=== PATIENT | male | born 2000 | race Caucasian/White ===

== ENCOUNTER 2024-10-07 09:53 | Outpatient (AMB) | payer BC, SELFPAY ==
--- NOTE | 2024-10-07 10:06 | MHC.PC.OV ---
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 //Requesting PE Intake Note: New patient to establish care Client Support Associate Required: No Allergies Penicillins Allergy (Severe, Verified 10/07/24 10:37) Unknown Medication List - Last Reconciled 10/07/24 by Marlene Pimentel, BRAZING MACHINE OPERATOR HELPER- trazodone 50 mg PO BEDTIME PRN Tobacco use date assessed: 10/07/24 Dental Screening Dental Screen Date: 10/07/24 Did you have a dental visit in the last 12 months?: Yes Did you have a dental problem in the last 6 months where you did not have access to dental care?: No Was dental information given to patient?: Patient has dentist HPI HPI Comments History of Present Illness Details 24 y/o M with ZULLY, IBS, GERD Surgery: None Fhx: MGF prostate Ca, PGF Lung Ca MGM Lung Ca 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 Hobbies - exercise Vapes nicotine some times ; uses nicotine lozenges Health Maintenance: Tdap admin today [facility] wears glasses, last eye exam 2024 Previous PCP: Samantha, records reviewed. Here as a new patient. to est care and for CPE GI sx - chronic for years. FFd by GI in the past. Has known dietary triggers. Denies blood in stools. Reports unexpected wt changes, states was 190lbs now 160's. 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 Feels GI sx started 2 years before starting Trazadone; no worsening of sx after starting. Traz works good for anxiety. Not in counseling; did was younger. Managing. Yaniv si/hi. 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 - Engages in exercise and snacks as possible due to work schedule. - Lives in a safe environment; no concerns reported. - Reports occasional smoking and vaping, transitioning to nicotine lozenges. Health Maintenance - Family history of cancer discussed. - Tetanus vaccination administered. - Screening labs for cholesterol and diabetes discussed. - Encouraged to use sunscreen and bug spray outdoors. - Follow-up with [facility] GI group for a second opinion. - Encouraged to maintain nutrition and observe food triggers for IBS management. Review of Systems - Gastrointestinal: Reports abdominal pain, diarrhea; denies blood in stools - Weight: Denies intentional weight loss - Neurological: Denies coordination or balance issues - Psychological: Reports anxiety - Respiratory: Denies any breathing difficulties Physical Exam General: Well developed, well nourished, in no acute distress. Appears stated age. Head: Normocephalic, atraumatic. Eyes: Pupils are equal, round and reactive to light and accommodation. Conjunctivae are clear. Vision grossly normal. Wears glasses, last eye exam within the past few months. Ears: TMs clear AU, EACS WNL. Tiny bit of wax noted, no blockage. Offered and declined lavage today. Nose: Patent, without discharge. Neck: Supple, no adenopathy or thyromegaly. No pain or tenderness noted. Breast: Edu on SBE Lungs: Clear to auscultation bilaterally. No rales, rhonchi or wheeze noted. Good air flow in all magaña. Heart: Regular rate and rhythm. No murmurs, click, rubs or gallops are noted. Abdomen: Bowel sounds present in all quadrants. The abdomen is soft, nontender, with no masses or organomegaly noted. No hernias are noted. No pain or tenderness upon palpation. : Deferred. Reviewed FARIDEH & recommendations. Patient educated on testicular and penile exams. Pulses: Peripheral pulses are equal and palpable bilaterally. Extremities: No clubbing, cyanosis nor edema is noted. Foot fungus noted, advised on antifungal treatment. Neurologic: Gait and station normal. Cranial Nerves 2-12 intact. Motor strength grossly symmetrical and intact. No sensory loss. Balance normal. Skin: No rashes, ulcers, or lesions noted. Turgor is good. Skin color is good. Hair and nails are without abnormalities. Psych: Normal eye contact, affect and mood appropriate, and normal interactions. Patient is alert and appropriate to context. No current counseling, but trazodone is helping with anxiety and sleep. No thoughts of self-harm or harm to others. Results Pending Discussion Notes I discussed the patient's chronic gastrointestinal symptoms suggestive of IBS, emphasizing the potential benefit of a consult with [facility]'s GI group for a second opinion. I reassured that trazodone use does not correlate with worsening of symptoms based on the patient's observation. I explained the ongoing necessity for dietary management and offered strategies for nutritional intake amidst work challenges. We discussed the unexplained weight loss with observation for any further changes. I reviewed the use of the patient portal for easy access to care and communication. Lab tests for diabetes and cholesterol screening were proposed. Assessment and Plan 1. Irritable Bowel Syndrome (IBS) - GI referral for evaluation. - Continue dietary adjustment, monitor progress. 2. Gastroesophageal Reflux Disease (GERD) - Maintain dietary and lifestyle management. 3. Anxiety and Insomnia - Continue trazodone, assess response. 4. Weight Management - Encourage nutritional consistency. 5. Health Maintenance - Tetanus vaccination given. - Order labs for diabetes and cholesterol. Patient Instructions - Avoid foods that worsen your symptoms, like raw vegetables. - Monitor any changes in weight and eating habits. - Continue taking trazodone as prescribed to manage anxiety and sleep. - Expect a call from [facility] for a GI appointment. - Make sure to get screening labs done for cholesterol and diabetes. - Use the patient portal for quick access to test results and communication with me. - RTO 1 year CPE sooner PRN Consent Patient was informed and verbally consented to the use of an ambient scribe for clinic note documentation during this visit. An additional 15 minutes was spent addressing the problem(s) noted at todays visit. This includes time spent before the visit reviewing the chart, time spent during the visit, and time spent after the visit on documentation reviewing laboratory results, diagnostic imaging, medications, performing a medically necessary evaluation, counseling on diagnoses, care coordination, ordering appropriate tests, ordering appropriate medications, review of tests performed by other providers, reporting test results with the patient, communication with other healthcare providers. [facility] Medical History (Updated 10/07/24 @ 11:40 by Marlene Pimentel [facility]) Anxiety IBS (irritable bowel syndrome) Surgical History (Updated 10/07/24 @ 10:15 by Christiano Cross MA) [place] teeth removed Family History (Updated 10/07/24 @ 10:16 by Christiano Cross MA) Paternal Grandmother Lung cancer Maternal Grandfather Prostate cancer Paternal Grandfather Lung cancer Social History (Updated 10/07/24 @ 10:14 by Christiano Cross MA) Household Members: Family Housing: House Are you a primary career education teacher to a significant other at home: No Do you presently have visiting nurse or other home services: No Alcohol intake: current Alcohol intake frequency: a few times a month Patient Tobacco Use Status: Never used Tobacco e-Cigarette/Vaping Use: Never Used Second Hand Smoke Exposure: No Current occupational status: employed 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 1. Little interest or pleasure in doing things: not at all 2. Feeling down, depressed, or hopeless: not at all 3. Trouble falling or staying asleep, or sleeping too much: not at all 4. Feeling tired or having little energy: not at all 5. Poor appetite or overeating: several days 6. Feeling bad about yourself - or that you are a failure or have let yourself or your family down: not at all 7. Trouble concentrating on things, such as reading the newspaper or watching television: not at all 8. Moving or speaking so slowly that other people could have noticed. Or the opposite - being so fidgety or restless that you have been moving around a lot more than usual: not at all 9. Thoughts that you would be better off or of hurting yourself in some way: not at all Total score: 1 Depression Screening Interpretation: Negative Depression Screening Done: Yes 94734 - PHQ-9 Billing: Yes Source: Developed by Drs. Wilbert Vital, Carrol Johnson, Alvarez Irby and colleagues, with an educational artie from [employer]. Thrive Questionnaire Date Thrive assessed: 10/07/24 I am a: Patient What is your living situation today?: I have a steady place to live Within the past 12 months, did the food you bought not last and you didn't have the money to get more?: Never true Within the past 12 months, did you worry whether your food would run out before you got money to buy more?: Never true Do you have trouble paying for medicines?: No Do you have trouble getting transportation to medical appointments?: No Do you have trouble paying your heating and electricity bill?: No Do you have trouble taking care of your child, family member or friend?: No Do you have trouble with day-to-day activities such as bathing, preparing meals, shopping, managing finances, etc.?: No Are you currently unemployed and looking for a job?: No Are you interested in more education?: Yes Please select the resources that you would like help with: None Currently or been in a relationship where the following occur: No concerns reported THRIVE Score: 0 AUDIT C Alcohol Use Questionnaire (AUDIT-C) 1. How often do you have a drink containing alcohol?: 4 or more times a week 2. How many drinks containing alcohol do you have on a typical day when you are drinking?: 1 or 2 3. How often do you have six or more drinks on one occasion?: Monthly Total Score: 6 Score Reviewed/Action Taken: Yes ZULLY-7 AMB Questionnaire ZULLY-7 Date ZULLY - 7 assessed: 10/07/24 Feeling nervous, anxious, or on edge: 1 = Several days Not being able to stop or control worryin = Not at all Worrying too much about different things: 1 = Several days Trouble relaxin = Not at all Being so restless that it is hard to sit still: 0 = Not at all Becoming easily annoyed or irritable: 0 = Not at all Feeling afraid as if something awful might happen: 0 = Not at all Total ZULLY-7 score (0-4 normal; 5-9 mild; 10-14 moderate; 15-21 severe): 2 Source: Developed by Drs. Wilbert Vital, Carrol Johnson, Alvarez Irby and colleagues, with an educational artie from [employer]. ZULLY-7 Assessment Billing ZULLY-7 Assessment Tool: ZULLY-7 Assessment 34475 Physical exam (Primary Care) Vital Signs: Last Vital Signs Temp 97.3 F 10/07/24 10:12 Pulse 72 10/07/24 10:12 Resp 12 10/07/24 10:12 BP 98/67 10/07/24 10:12 Pulse Ox 98 10/07/24 10:12 Oxygen Delivery Method Room Air 10/07/24 10:12 BMI result Body Mass Index 21.7 Tobacco/Smoking Status: Tobacco use Status Tobacco use date assessed 10/07/24 10/07/24 10:09 Patient Tobacco Use Status Never used Tobacco 10/07/24 10:14 e-Cigarette/Vaping Use Never Used 10/07/24 10:14 PHQ-9: PHQ-9 Score PHQ-9: Total score 1 10/07/24 10:37 Depression Screening Interpretation: Negative Thrive Assessment: Date of Thrive Assessment Date Thrive assessed 10/07/24 10/07/24 10:09 Currently or been in a relationship where the following occur: No concerns reported Immunizations Boostrix Tdap 2.5 Lf unit-8 mcg-5 Lf/0.5 mL intramuscular syringe Performing Provider: FUNMILAYO Mazariegos Performing Location: [facility] Administered by: Julieta Philippe RN on 10/07/24 11:09 Dose Route Admin Location Dispensed Lot Number Expiration Date [facility] Dye Stand Loader 0.5 mL IM Right Deltoid 0.5 mL [id number] 01/12/27 06350-883-80 Orbiter VIS Given Date VIS Provided VIS Publication Date 10/07/24 Single Vaccine 20 Eligibility Eligibility Date Funding Source Not [facility] Eligible 10/07/24 Private Coding Level of Care Code New Pt Level 2 (22132) New Pt Prev Care 18-39yr(08946 Diagnoses Encounter to establish care Z76.89 Irritable bowel syndrome with diarrhea K58.0 Irritable bowel syndrome type: with diarrhea Chronic diarrhea K52.9 Laboratory exam ordered as part of routine general medical examination Z00.00 Need for Tdap vaccination Z23 Encounter for general adult medical examination with abnormal findings Z00.01 Impacted cerumen of both ears H61.23 Additional Codes ZULLY-7 Assessment Billing - ZULLY-7 Assessment Tool: ZULLY-7 Assessment 25046 ([id number]) PHQ-9 - 19969 - PHQ-9 Billing: Yes ([id number]) Assessment & Plan Assessment & Plan (1) Encounter to establish care: Code(s): Z76.89 - Persons encountering health services in other specified circumstances (2) IBS (irritable bowel syndrome): Code(s): K58.9 - Irritable bowel syndrome, unspecified Category: Medical Qualifiers: Irritable bowel syndrome type: with diarrhea Qualified Code(s): K58.0 - Irritable bowel syndrome with diarrhea (3) Chronic diarrhea: Code(s): K52.9 - Noninfective gastroenteritis and colitis, unspecified Category: Medical (4) Laboratory exam ordered as part of routine general medical examination: Code(s): Z00.00 - Encounter for general adult medical examination without abnormal findings Category: Medical (5) Need for Tdap vaccination: Code(s): Z23 - Encounter for immunization Category: Medical (6) Encounter for general adult medical examination with abnormal findings: Onset Date: ~09/2024 Code(s): Z00.01 - Encounter for general adult medical examination with abnormal findings Category: Medical (7) Impacted cerumen of both ears: Code(s): H61.23 - Impacted cerumen, bilateral Plan: Earwax (Cerumen Impaction) Created in Ears Earwax, called cerumen, is produced by special wax-forming glands located in the skin of the outer one-third of the ear canal. It is normal to have cerumen in ear canal as this waxy substance serves as a self-cleaning agent with protective, lubricating, and antibacterial properties. The absence of earwax may result in dry, itchy ears. Self-cleaning means there is a slow and service center representative movement of earwax and skin cells from the eardrum to the ear opening. Old earwax is constantly being transported, assisted by chewing and jaw motion, from the ear canal to the ear opening where, most of the time, it dries, flakes, and falls out. What Are the Symptoms of an Earwax Blockage? Symptoms of an earwax problem may include: Earache Feeling of plugged hearing or fullness in the ear Partial hearing loss that gets worse Tinnitus, ringing, or noises in the ear Itching, odor, or discharge Coughing Pain Infection What Causes Earwax Blockage? When a patient has wax blockage against the eardrum, it is often because they have been probing the ear with such things as cotton-tipped swabs, marla pins, or twisted napkin corners. These objects only push the wax in deeper in the ear canal. Why Is It Dangerous to Use Swabs to Remove Earwax? Wax blockage is one of the most common causes of hearing loss. This is often caused by attempts to clean the ear with cotton swabs. Most cleaning attempts merely push the wax deeper into the ear canal which is shaped like an hourglass, causing a blockage at the narrowing part of the ear canal. In addition, accidental trauma to the ear drum or ear bones can occur if the swab is pushed too deep. Good intentions to keep ears clean may lessen the ability to hear. The ear is a delicate and complicated body part, including the skin of the ear canal and the eardrum. Therefore, special care should be given to this part of the body. Discontinue the habit of inserting cotton-tipped swabs or other objects into the ear canals. What Are the Treatment Options? Cleaning a working ear can be done by washing it with a soft cloth, but do not insert anything into the ear. Ideally, the ear canals should never have to be cleaned. However, that isn?t always the case. The ears should be cleaned when enough earwax gathers to cause symptoms or to prevent a needed assessment of the ear by your doctor. This condition is call cerumen impaction. Most cases of ear wax blockage respond to home treatments used to soften wax. Patients can try placing a few drops of mineral oil, baby oil, glycerin, or commercial drops in the ear. Detergent drops such as hydrogen peroxide or carbamide peroxide (available in most pharmacies) may also aid in the removal of wax. Irrigation or ear syringing is commonly used for cleaning and can be performed by a physician or at home using a commercially available irrigation kit. Common solutions used for syringing include water and saline, which should be warmed to body temperature to prevent dizziness. Ear syringing is most effective when water, saline, or wax dissolving drops are put in the ear canal 15 to 30 minutes before treatment. Caution is advised to avoid having your ears irrigated if you have diabetes, a hole in the eardrum (perforation), tube in the eardrum, skin problems such as eczema in the ear canal or a weakened immune system. >> If you have been prescribed Debrox, use as directed for 5 nights and return to the office on Day 6 for an ear lavage to remove the wax<< Manual removal of earwax is also effective. This is most often performed by an ENT (ear, nose, and throat) specialist, or real estate loan processor, using suction or special miniature instruments, and a microscope to magnify the ear canal. Manual removal is preferred if your ear canal is narrow, the eardrum has a perforation or tube, other methods have failed, or if you have skin problems affecting the ear canal, diabetes or a weakened immune system. When Should I Talk to a Doctor? If home treatments do not help, or if wax has accumulated so much that it blocks your ear canal and your ability to hear, an ENT specialist may prescribe eardrops designed to soften wax, or they may wash or vacuum it out. Your ENT specialist may also need to remove the wax under microscopic visualization. If there is a possibility of a perforation in the eardrum, consult a physician prior to trying any [id number] remedies. Putting eardrops or other products in the ear with the presence of an eardrum perforation may cause pain or an infection. Washing water through such a hole could start an infection. If you are prone to repeated wax impaction or use hearing aids, consider seeing your doctor every six to 12 months for a checkup and routine preventive cleaning. What Questions Should I Ask My Doctor? What are the benefits and risks/side effects of different cerumen removal management options: earwax softening products, water irrigation vs. physical removal? Does cerumen accumulation vary with age, gender, familial or dietary intake? How do I manage swimming underwater with cerumen impaction? Should anything be done to the ears to prevent a buildup of earwax? How often should cerumen be removed from the ears? Are ear candles a safe option for removing earwax? Plan . Orders: Orders TSH reflex Free T4 Today Z00.00 - Encounter for general adult medical examination without abnormal findings Comprehensive Met. Panel Today Z00.00 - Encounter for general adult medical examination without abnormal findings Complete Blood Count no Diff Today Z00.00 - Encounter for general adult medical examination without abnormal findings Hemoglobin A1c Today Z00.00 - Encounter for general adult medical examination without abnormal findings Lipid Panel Today Z00.00 - Encounter for general adult medical examination without abnormal findings Vitamin B12 and Folate Today Z00.00 - Encounter for general adult medical examination without abnormal findings Vitamin D 25-OH Total Today Z00.00 - Encounter for general adult medical examination without abnormal findings Referrals Gastroenterology Referral K52.9 - Noninfective gastroenteritis and colitis, unspecified, K58.9 - Irritable bowel syndrome, unspecified Medications: New trazodone 50 mg PO BEDTIME 90 tabs 2RF Patient Instructions: Walk-In Care (Urgent Care): We Make it Easy Walk-in for urgent medical issues such as: ? Seasonal Allergies ? Insect Bites ? Cough ? Diarrhea ? Acute Asthma Attacks ? Back, Knee or Joint Pain ? Ear Infection ? Fever without a Rash ? Headaches ? Nausea ? [place] Eye, Rash or Skin Irritation ? Sore Throat ? Sports Physicals ? Vomiting Most insurances are accepted. Patients do not need to be part of the [facility] to seek care at the walk-in clinic. Locations [facility] [place] [address] ? [phone] [facility] [place] provides services to ages 18 and over. Open Saturday-Saturday: 8 a.m. to 5 p.m. and Saturday: 9 a.m. to 3 p.m.* *Hours may vary due to staffing availability. To confirm Walk-In Care hours in [place], please call [phone]. [address] [place] [address] ? [phone] [facility] [place] provides services to ages 12 and over. Open Saturday-Saturday: 8 a.m. to 5 p.m. Hours may vary due to staffing availability. To confirm Walk-In Care hours in [place], please call [phone]. LABORATORY SERVICES: [facility] ? Primary Location [address] [place] [address] Saturday through Saturday 6:00 AM ? 5:00 PM Saturday 7:00 AM ? 11:00 AM* [phone] The [facility] is centrally located near the front entrance of the [facility] for easy outpatient access. Convenient parking is provided for outpatients. *Hours may vary due to staffing availability. To confirm Laboratory hours for any location, please call [phone]. Offsite Location For your convenience, we offer offsite laboratory draw stations at the following locations: [address] [place] [address] ? [facility] [address], [address] Saturday through Saturday 7:30 AM ? 1:00 PM* [phone] *Hours may vary due to staffing availability. To confirm Laboratory hours for any location, please call [phone]. [place] ? [address] Saturday through Saturday 6:00 AM ? 3:30 PM* Saturday 6:30 AM ? 3 PM* [phone] *Hours may vary due to staffing availability. To confirm Laboratory hours for any location, please call [phone]. [address] [facility] Saturday through Saturday 7:30 AM ? 4:00 PM* [phone] *Hours may vary due to staffing availability. To confirm Laboratory hours for any location, please call [phone]. [address] [facility] Saturday through 9:00 AM ? 4:00 PM* *Hours may vary due to staffing availability. To confirm Laboratory hours for any location, please call [phone]. Appointments are not necessary. Walk-ins are welcome. Like all the departments throughout the [facility], our Lab undergoes frequent reviews to ensure the quality and accuracy of test results, and our staff takes special pride in its status as a nationally accredited facility. Patient Portal: ONE PATIENT. ONE RECORD. BETTER CARE. [facility] has a fully integrated, cutting-edge mobile electronic health information system that has revolutionized the way we care for our patients and manage our organization. This system improves communication and coordination enabling us to provide safe, higher-quality care, and an overall positive experience for staff and patients. Our first priority, as always, is to deliver the highest quality care possible. The system is running in the background supporting that priority. This portal is for all [facility] and [facility] services and practices. If you are experiencing any technical difficulties with enrolling or logging into the Patient Portal please complete the [facility] Patient Portal Technical Support Form. [facility] now offers a new secure on-line interactive tool for patients to review their health information ? ?Patient Portal. This interactive web portal will enable patients and their families to take an active role in their care by providing easy, secure access to their health information via the internet. The Patient Portal provides patients with instant access to their health information, including laboratory results, medications, allergies, demographic information, visit history, and more. In addition to managing their own care, parents and health care proxies with authorized consent will appreciate the ability to access the records of those individuals for whom they provide care. Please note: if you wish to gain access (Proxy) to another patient?s portal, you will be required to come to the Medical Records Department in person at [facility]. Both the patient giving proxy access and the proxy will need to provide photo identification and complete the appropriate authorization. The Patient Portal also allows track their appointments online. The [facility] Patient Portal also saves patients time by allowing them to submit updates to their demographic and contact information prior to their visits. Portal email notifications will also alert patients to any new activity on their portal, such as test results and new appointments. In order to initially enroll in the [facility] Patient Portal, you will need to enter some required information including the following: your [facility] Medical Record number your personal home email address name date of Please note: In order to enroll in the [facility] Patient Portal, we need to have your email address on file in your electronic medical record. ?The email address needs to be specific for one person (yourself) in order for your Portal enrollment to be successful. ?You can update your email address in person with our Registration staff when you are registering for a hospital visit. ?Otherwise, you will need to come to the Health Information Management (Medical Records) Department at [facility]. ?We are open from Saturday ? Saturday from 7:30 a.m. ? 4:30 p.m. ?You will be required to present a photo id. Once you have successfully enrolled in the Patient Portal, you will receive a one-time user id and password for the Portal, sent to your email address. ?This will allow you to log into the Patient Portal within 99 hrs and reset your own logon id and password, and define personal security questions. ?Once your permanent login and password have been set, you can log into the [facility] Patient Portal at any time via the blue button above or from the Portal Logon button on any page of the [facility] website. [facility] and [facility] encourage all of our patients to enroll in Patient Portal as it presents a valuable opportunity for patients and their families to actively participate in their care and stay healthy Welcome to [facility]. ?We look forward to working with you. Health screenings for men You should visit your health care provider regularly, even if you feel healthy. The purpose of these visits is to: Screen for medical issues Assess your risk for future medical problems Encourage a healthy lifestyle Update vaccinations and other preventive care services Help you get to know your provider in case of an illness Information Even if you feel fine, you should still see your provider for regular checkups. These visits can help you avoid problems in the future. For example, the only way to find out if you have high blood pressure is to have it checked regularly. High blood sugar and high cholesterol level also may not have any symptoms in the early stages. Simple blood tests can check for these conditions. There are specific times when you should see your provider or receive specific health screenings. The [place] Preventive Services Task Force publishes a list of recommended screenings. Below are screening guidelines for men ages 40 to 64. BLOOD PRESSURE SCREENING Have your blood pressure checked at least once every year. Watch for blood pressure screenings in your area. Ask your provider if you can stop in to have your blood pressure checked. Ask your provider if you need your blood pressure checked more often if: You have diabetes, heart disease, kidney problems, or are overweight or have certain other health conditions You have a first-degree relative with high blood pressure You are Black Your blood pressure top number is from 120 to 129 mm Hg, or the bottom number is from 70 to 79 mm Hg If the top number is 130 mm Hg or greater or the bottom number is 80 mm Hg or greater, this is considered stage 1 hypertension. Schedule an appointment with your provider to learn how you can lower your blood pressure. Effects of age on blood pressure CHOLESTEROL SCREENING Cholesterol screening should begin at age 35 for men with no known risk factors for coronary heart disease. Repeat cholesterol screening should take place: Every 5 years for men with normal cholesterol levels More often if changes occur in lifestyle (including weight gain and diet) More often if you have diabetes, heart disease, kidney problems, or certain other conditions COLORECTAL CANCER SCREENING If you are under age 45, talk to your provider about getting screened. You may need to be screened if you have a strong family history of colon cancer or polyps. Screening may also be considered if you have risk factors such as a history of inflammatory bowel disease or polyps. If you are age 45 to 75, you should be screened for colorectal cancer. There are several screening tests available: A stool-based fecal occult blood (gFOBT) or fecal immunochemical test (FIT) every year A stool sDNA test every 1 to 3 years Flexible sigmoidoscopy every 5 years or every 10 years with stool testing FIT done every year CT colonography (virtual colonoscopy) every 5 years Colonoscopy every 10 years You may need a colonoscopy more often if you have risk factors for colorectal cancer, such as: Ulcerative colitis A personal or family history of colorectal cancer A history of growths in your colon called adenomatous polyps DENTAL EXAM Go to the dentist once or twice every year for an exam and cleaning. Your dentist will evaluate if you have a need for more frequent visits. DIABETES SCREENING All adults who do not have risk factors for diabetes should be screened starting at age 35 and repeated every 3 years. If you have other risk factors for diabetes, such as a first degree relative with diabetes, overweight or obesity, high blood pressure, prediabetes, or a history of heart disease, you may be tested more often. If you are overweight and have other risk factors, such as high blood pressure and are planning to become , screening is recommended. EYE EXAM Have an eye exam every 2 to 4 years ages 40 to 54 and every 1 to 3 years ages 55 to 64. Your provider may recommend more frequent eye exams if you have vision problems or glaucoma risk. Have an eye exam that includes an examination of your retina (back of your eye) at least every year if you have diabetes. IMMUNIZATIONS Commonly needed vaccines include: Flu shot: get one every year COVID-19 vaccine: ask your provider what is best for you Tetanus-diphtheria and acellular pertussis (Tdap) vaccine: have as one of your tetanus-diphtheria vaccines if you did not receive it as an adolescent Tetanus-diphtheria: have a booster (or Tdap) every 10 years Varicella vaccine: receive 2 doses if you never had chickenpox or the varicella vaccine and were born in 1979 or after Hepatitis B vaccine: receive 2, 3, or 4 doses, depending on your exact circumstances, if you did not receive these as a child or adolescent, until age 59 Shingles (herpes zoster) vaccine: at or after age 50 Ask your provider if you should receive other immunizations, especially if you have certain medical conditions, such as diabetes or are at increased risk for some diseases such as pneumonia. INFECTIOUS DISEASE SCREENING Screening for hepatitis C: all adults ages 18 to 79 should get a one-time test for hepatitis C. Screening for human immunodeficiency virus (HIV): all people ages 15 to 65 should get a one-time test for HIV. Depending on your lifestyle and medical history, you may need to be screened for infections such as syphilis, chlamydia, and other infections. LUNG CANCER SCREENING You should have an annual screening for lung cancer with low-dose computed tomography (LDCT) if: You are age 50 to 80 years AND You have a 20 pack-year smoking history AND You currently smoke or have quit within the past 15 years OSTEOPOROSIS SCREENING If you are age 50 to 64 and have risk factors for osteoporosis, you should discuss screening with your provider. Risk factors can include long-term steroid use, low body weight, smoking, heavy alcohol use, having a fracture after age 50, or a family history of hip fracture or osteoporosis. Osteoporosis PHYSICAL EXAM All adults should visit their provider from time to time, even if they are healthy. The purpose of these visits is to: Screen for diseases Assess risk of future medical problems Encourage a healthy lifestyle Update vaccinations and other preventive care services Maintain a relationship with a provider in case of an illness Your height, weight, and body mass index (BMI) should be checked at every exam. During your exam, your provider may ask you about: Depression and anxiety Diet and exercise Alcohol and tobacco use Safety, such as use of seat belts and smoke detectors Your medicines and risk for interactions PROSTATE CANCER SCREENING If you're 55 through 69 years old, before having the test, talk to your provider about the pros and cons of having a PSA test. Ask about: Whether screening decreases your chance of dying from prostate cancer. Whether there is any harm from prostate cancer screening, such as side effects from testing or overtreatment of cancer when discovered. Whether you have a higher risk of prostate cancer than others. If you are age 55 or younger, screening is not generally recommended. You should talk with your provider about if you have a higher risk for prostate cancer. Risk factors include: Having a family history of prostate cancer (especially a brother or father) Being If you choose to be tested, the PSA blood test is repeated over time (yearly or less often), though the best frequency is not known. Prostate examinations are no longer routinely done on men with no symptoms. Prostate cancer SKIN EXAM Your provider may check your skin for signs of skin cancer, especially if you're at high risk. People at high risk include those who have had skin cancer before, have close relatives with skin cancer, or have a weakened immune system. TESTICULAR EXAM The US Preventive Services Task Force (USPSTF) now recommends against performing testicular self-exams. Doing testicular self-exams has been shown to have little to no benefit.
[2024-10-07 10:12] VITALS: BP 98/67; PULSE 72; RESP 12; TEMP 36.3; O2SAT 98; BMI 21.7
--- OUTSIDE RECORDS SUMMARY | 2024-10-07 11:16 | XMS_ITS | Clinical Summary ---
Author Organization [facility] Address [address] [place] [id number] Phone Care Team Providers Care Driver Name Role Phone Unavailable Primary Care Provider Unavailabl e Allergies No known active allergies Medications loratadine (Claritin) 10 MG tabletIndicatio ns:Seasonal allergic rhinitis due to pollen Take 1 tablet (10 mg total) by mouth daily. 30 tablet 3 02/22/2020 Active FLUoxetine 20 MG capsuleIndicati ons:Anxiety Take 1 capsule (20 mg total) by mouth daily. 30 capsule 01/26/2021 Active Active Problems Problem Noted Date Diagnosed Date Migraine with aura and witho ut status migrainosus, not intractable 01/26/2016 Anxiety 01/26/2016 Overview (05/16/2019): Fluoxetine 11/02 - around 07/07 Was on 30 mg 10/06/18 we restarted fluoxetine 10 mg.x 7 days than increased to 20 mg 10/22 was doing well with the restart. Assessment & Plan (11/26/2019 10:54 AM EDT): Doing great with Anxiety Discussed work, school, life. Okay to refill fluoxetine 6 months. Assessment & Plan (12/08/2018 10:58 AM EDT): Doing well with current dose. Will maintain dose at this level. Discussed importance of taking meds consistently every day. Plane to recheck in Nov at time of C, sooner PRN Assessment & Plan (10/06/2018 2:33 PM EDT): More anxiety than depression at this time. History and ZULLY screen is concerning for anxiety. Discussed anxiety with him. Discussed treatment options. Like most teenagers he expresses some reservations about counseling but we reviewed in detail what therapy is and the purpose of it. We discussed our co-located therapist. At this time he prefers to see how medicine does alone at first. We discussed SSRI's and there role. Even though he has done well in the past, we will still start low with a test dose and than slowly increase as needed. Anxiety can sometimes require higher dosing. We discussed the black box warning around SSRI's and he agrees to call me if he is agitated or feels down, sad or has any thoughts of harm. He agrees to return in 2 week for a recheck in office. Discussed safety at end of year senior events. Strongly encouraged him to cut out smoking and vaping. Assessment & Plan (04/15/2018 12:14 PM EST): Elie tells me that things have been much better with this recently. Still occasional anxiety but improved. Immunizations Immunization Administration Dates Next Due DTaP 04/05/2005, 2,2000,07/30,2000 HPV, Quadrivalent 10/05/2014,11/05/2013,09/02/19 14 Hep A, ped/adol 04/15/2018,04/10/2017 Hep B, ped/adol 2000,2000,2000 Hib (PRP-T) 06/25/2001, 1,2000,05/21 IPV 04/05/2005, 1,2000,05/21 Influenza 04/05/2007, 6,02/23/2005,03/14 Influenza, injectable, quadrivalent 02/17,03/12/2011,02/09/2010,02/19,03/20/2008 Influenza, injectable, quadr ivalent, preservative free 02/22/2020,03/28/2019,04/15/2018,02/23,01/26/2016,02/12/2015,02/15/2014 Influenza, intranasal, quadrivalent 02/17/2013 MMR 03/28/2004,03/26/2001 Meningococcal B Bexsero 05/18/2019,01/07/2019 Meningococcal Conj (Menactra) MCV4P 04/10/2017,0 06/29/2011 Pneumococcal Conjugate 06/25/2001,2000,2000,05/21 Tdap 06/29/2011 Varicella 04/23/2008,06/26/2002 Family History Medical History Relation Name Comments No Known Problems Brother 1 Case ADD / ADHD Brother 2 Omar ADD / ADHD Brother 3 Julian No Known Problems Father No Known Problems Father's Brother No Known Problems Father's Sister No Known Problems Maternal Grandfather No Known Problems Maternal Grandmother No Known Problems Mother Lung cancer Paternal Grandfather Skin cancer Paternal Grandmother Relation Name Status Comments Brother 1 Case Alive Brother 2 Omar Alive Brother 3 Julian Alive Father Alive Father's Brother Alive Father's Sister Alive Maternal Grandfather Alive Maternal Grandmother Alive Mother Alive Paternal Grandfather Paternal Grandmother Alive Social History Tobacco Use Types Packs/Day Years Used Date Smoking Tobacco: Never Smokeless Tobacco: Current Tobacco Cessation:Ready to Q uit: No; Counseling Given: Yes Comments:Annie 5%. Alcohol Use Standard Drinks/Week Comments Yes 0 (1 standard drink = 0.6 oz pur e alcohol) occasionally Hunger/Food Answer Date Recorded In the last 12 months, did y ou or your family ever eat less than you felt you should because there wasn't enough money for food? No 05/18/2019 Stable Housing Answer Date Recorded Are you worried that in the next 2 months you may not have stable housing? No 05/18/2019 Transportation Concerns Answer Date Rec orded In the last 12 months, have you or your family ever had to go without healthcare because you didn't have a way to get there? No 05/18/2019 Hazards in Home Answer Date Recorded Think about the place you li ve. Do you have problems with any of the following? Pests (mice or roaches), mold, no/not working smoke detectors, water leaks, no window guards. No 2018 Financing Utilities Answer Date Recorde d In the last 12 months, has t he electric, gas, oil, or water company threatened to shut off your services in your home? No 05/18/2019 Safety at Home Answer Date Recorded Are you or your family worried about feeling saf e in your home? No 05/18/2019 Outside Support Answer Date Recorded Do you feel that you need mo re support from other people or programs to help you care for yourself or your family? No 05/18/2019 Understanding Health Concerns Answer Da te Recorded Do you need help understandi ng your or your child's healthcare needs (diagnosis, medications, plan, etc.)? No 05/18/2019 Financing Health Concerns Answer Date R ecorded In the last 12 months, was t here a time when your child needed to see a doctor or get medications or supplies but could not because of cost? No 05/18/2019 Missing School or Work Answer Date Heriberto rded Did you or your child miss s chool or work because of a health problem that could have been avoided? No 05/18/2019 Sex and Gender Information Value Date Recorded Sex Assigned at Not on file Legal Sex Male 6:08 PM EDT Gender Identity Not on file Sexual Orientation Lesbian or Adams 05/18/2019 11 :44 AM EST Last Filed Vital Signs Vital Sign Reading Time Taken Comments Blood Pressure 116/78 11/26/2019 10:32 AM EDT Pulse 96 06/01/2017 12:00 AM EST Temperature 37.2 ??C (98.9 ??F) 06/06/2019 11:[address] Respiratory Rate - - Oxygen Saturation 95% 06/01/2017 12:00 AM EST Inhaled Oxygen Concentration - - Weight 75.8 kg (167 lb) 11/26/2019 10:32 AM EDT Height 181.6 cm (5' 11.5 ) 11/26/2019 10:32 AM E DT Body Mass Index 22.97 11/26/2019 10:32 AM EDT Plan of Treatment Health Maintenance Due Date Last Done Comments DTaP,Tdap,and Td Vaccines (7 - Td or Tdap) 06/29/2021 06/29/2011, 04/05/2005, 06/25/2001, Additional history exists Influenza Vaccines (#1) 2023 03/24/20, 02/22/2020, 03/28/2019, Additional history exists COVID-19 Vaccine (2023-2 5 season) 2024 04/23/2021, 08/21/2020 Hepatitis B Vaccines Completed 2000, 2000, 2000 HIB Vaccines Completed 06/25/2001, 01/2001, 2000, Additional history exists Pneumococcal Vaccine Completed 06/25/2001, 2000, 2000, Additional history exists MMR Vaccines Completed 03/28/2004, 03/26/2001 IPV Vaccines Completed 04/05/2005, 10/2000, 2000, Additional history exists Varicella Vaccines Completed 04/23/2008, 06/26/2002 HPV Vaccines Completed 10/05/2014, 10/18, 09/01/2013 Meningococcal Vaccine Completed 04/10/2017, 012 Hepatitis A Vaccines Completed 04/15/2018, 04/10/20 17 Men B Vaccine Completed 05/18/2019, 01/07/2019 Insurance [facility] PPO
--- OUTSIDE RECORDS SUMMARY | 2024-10-07 11:16 | XMS_ITS | Encounter Summary ---
Author Organization [facility] Address [address] [place] [phone] Phone Care Team Providers Care Timekeeping Supervisor Name Role Phone Wilbert Jose MD Primary Care Provider [phone] Reason for Visit * Reason Comments Med Refill Encounter Details Date Type Department Care Team (Late st Contact Info) Description 11/12/2019 [facility] [address] [id number] Wilbert Jose MD [address] [place] [id number] Anxiety Social History Tobacco Use Types Packs/Day Years Used Date Smoking Tobacco: Never Smokeless Tobacco: Current Comments:Annie 5%. Alcohol Use Standard Drinks/Week Comments [...] or Adams 05/18/2019 11 :44 AM EST documented as of this encounter Miscellaneous Notes * Telephone Encounter - Leela Rodriguez MA - 11/16/2019 9:07 AM EDT Appt scheduled. * Telephone Encounter - Leela Rodriguez MA - 11/12/2019 1:14 PM EDT Left message to call the office to contact the office to schedule med check. * Telephone Encounter - Wilbert Jose MD - 11/12/2019 12:41 PM EDT Please have Elie come in for a med check next month. RX reviewed and eprescribed to pharmacy. * Telephone Encounter - Marilyn Medeiros LPN - 11/12/2019 9:23 AM EDT Refill request from the pharmacy Fluoxetine 20 mg Last refill 10/13/19 Last WCC 05/18/19 Last recheck 12/08/18 Send to the pharmacy on file documented in this encounter Plan of Treatment Not on file documented as of this encounter Visit Diagnoses Diagnosis Anxiety Anxiety state, unspecified documented in this encounter Care Teams Timekeeping Supervisor Relationship Specialty Start Date End Date Wilbert Jose MD [address] [place] [address] PCP - General Pediatrics 02/04/18 06/30/24 documented as of this encounter
--- OUTSIDE RECORDS SUMMARY | 2024-10-07 11:16 | XMS_ITS | Clinical Summary ---
Author Organization [facility] Address [address] [place] [address] Care Team Providers Care [employer] Assistant Manager Name Role Phone Unavailable Primary Care Provider Unavailabl e Immunizations Name Administration Dates Next Due Influenza, live, intranasal, trivalent (FluMist) 2yo to less than 50yo 05/05/2024 Moderna SARS-CoV-2 COVID-19, mRNA, LNP-S, preservative free 05/05/2024 Social History Tobacco Use Types Packs/Day Years Used Date Smoking Tobacco: Never Assessed Sex and Gender Information Value Date Recorded Sex Assigned at Not on file Legal Sex Male 1:31 PM EDT Gender Identity Not on file Sexual Orientation Not on file Plan of Treatment Health Maintenance Due Date Last Done Comments HPV Vaccines (1 - Male 3-dos e series) 2015 DTaP,Tdap,and Td Vaccines (1 - Tdap) 2019 Hepatitis B Vaccines (1 of 3 - 19+ 3-dose series) 2019 Depression Screening 12/20/2023 HIV Screening 12/20/2023 Hepatitis C Screening 12/20/2023 Social Influencers of Health Screening 12/20/2023 COVID-19 Vaccine (2 - 2023-2 5 season) 2024 05/05/2024 Influenza Vaccine Completed 05/05/2024 HIB Vaccines Aged Out No longer eligi ble based on patient's age to complete this topic Hepatitis A Vaccines Aged Out No long er eligible based on patient's age to complete this topic IPV Vaccines Aged Out No longer eligi ble based on patient's age to complete this topic MMR Vaccines Aged Out No longer eligi ble based on patient's age to complete this topic Meningococcal ACWY Vaccine Aged Out N o longer eligible based on patient's age to complete this topic Meningococcal B Vaccine Aged Out No l onger eligible based on patient's age to complete this topic Pneumococcal Vaccine: Pediat rics (0 to 5 Years) and At-Risk Patients (6 to 64 Years) Aged Out No longer eligi ble based on patient's age to complete this topic RSV Immunization Patients Un maulik 20 months Aged Out No longer eligible b ased on patient's age to complete this topic Varicella Vaccines Aged Out No longer eligible based on patient's age to complete this topic
--- OUTSIDE RECORDS SUMMARY | 2024-10-07 11:16 | XMS_ITS | Encounter Summary ---
Author Organization [facility] Address [address] [place] [address] Phone Care Team Providers Care Director Of Aviation Name Role Phone Wilbert Jose MD Primary Care Provider [phone] Encounter Details Date Type Department Care Team (Late st Contact Info) Description 10/06/2017 Conversion Encounter [facility] [address] [place], [place] [address] [place] [address] Social History Tobacco Use Types Packs/Day Years Used Date Smoking Tobacco: Never Assessed Sex and Gender Information Value Date Recorded Sex Assigned at Not on file Legal Sex Male 6:08 PM EDT Gender Identity Not on file Sexual Orientation Lesbian or Adams 05/18/2019 11 :44 AM EST documented as of this encounter Plan of Treatment Not on file documented as of this encounter Visit Diagnoses Not on filedocumented in this encounter Care Teams Director Of Aviation Relationship Specialty Start Date End Date Wilbert Jose MD [address] [place] [address] PCP - General Pediatrics 02/04/18 06/30/24 documented as of this encounter
--- OUTSIDE RECORDS SUMMARY | 2024-10-07 11:16 | XMS_ITS | Encounter Summary ---
Author Organization [facility] Address [address] [place] [address] Phone Care Team Providers Care Corn Sheller Operator Name Role Phone Wilbert Jose MD Primary Care Provider [phone] Reason for Visit * Reason Comments Med Refill Encounter Details Date Type Department Care Team (Late st Contact Info) Description 12/15/2019 [facility] [address] [id number] Wilbert Jose MD [address] [place] [address] Anxiety Social History Tobacco Use Types Packs/Day [...] encounter Miscellaneous Notes * Telephone Encounter - Wilbert Jose MD - 12/15/2019 12:52 PM EDT Prescriptions reviewed and eprescribed to pharmacy * Telephone Encounter - Stefanie Shelton MA - 12/15/2019 12:47 PM EDT Refill request for Fluoxetine 20mg Last [facility] was 05/18/19 Last med check was 11/26/19 Last refill was 11/12/19 Please review documented in this encounter Plan of Treatment Not on file documented as of this encounter Visit Diagnoses Diagnosis Anxiety Anxiety state, unspecified documented in this encounter Care Teams Corn Sheller Operator Relationship Specialty Start Date End Date Wilbert Jose MD [address] [facility] [place] [address] PCP - General Pediatrics 02/04/18 06/30/24 documented as of this encounter
--- OUTSIDE RECORDS SUMMARY | 2024-10-07 11:16 | XMS_ITS | Encounter Summary ---
Author Organization [facility] Address [address] [place] [address] Phone Care Team Providers Care Wooden Shade Hardware Installer Name Role Phone Wilbert Jose MD Primary Care Provider [phone] Reason for Visit * Reason Comments Med Refill Encounter Details Date Type Department Care Team (Late st Contact Info) Description 07/06/2019 [facility] [address] [place], [place] [phone] Claudia Reynolds NP [address], [place] [phone] Anxiety Social History Tobacco Use Types Packs/Day [...] Telephone Encounter - Wilbert Jose MD - 07/08/2019 7:27 AM EST Prescriptions reviewed and eprescribed to pharmacy * Telephone Encounter - Paulina Marte MA - 07/06/2019 1:31 PM EST Request for refill on Fluoxetine 20 MG capsule Last refill- 04/15/19 Last med check/[facility]- 05/18/[address] Jose for review and send to the pharmacy. documented in this encounter Plan of Treatment Not on file documented as of this encounter Visit Diagnoses Diagnosis Anxiety Anxiety state, unspecified documented in this encounter Care Teams Wood[employer] Shade Hardware Installer Relationship Specialty Start Date End Date [facility] [address] PCP - General Pediatric[facility] 02/04/18 06/30/24 documented as of this encounter
== END 2024-10-07 11:07 | disposition home or self-care (01) ==
LOC: HO.HMCFM 09:54
PROVIDERS: PCP Nurse Practitioner Family; Visit Provider Nurse Practitioner Family
DX: Z00.00 Encounter for general adult medical examination without abnormal findings (principal); K58.0 Irritable bowel syndrome with diarrhea; H61.23 Impacted cerumen, bilateral; Z76.89 Persons encountering health services in other specified circumstances; Z23 Encounter for immunization

== ENCOUNTER → 2024-10-07 09:53 | Outpatient (BNVA) | payer BC, SELFPAY | PROVIDERS: PCP Nurse Practitioner Family; Visit Provider Nurse Practitioner Family | DX: Z00.01 Encounter for general adult medical examination with abnormal findings (principal); K21.9 Gastro-esophageal reflux disease without esophagitis; F41.9 Anxiety disorder, unspecified; G47.00 Insomnia, unspecified; K58.0 Irritable bowel syndrome with diarrhea; K52.9 Noninfective gastroenteritis and colitis, unspecified; H61.23 Impacted cerumen, bilateral; Z23 Encounter for immunization; Z76.89 Persons encountering health services in other specified circumstances | CPT/HCPCS: 90471; 90715; 96127 ==

== ENCOUNTER 2024-10-07 11:13 | Outpatient (REF) | payer BC, SELFPAY ==
--- OUTSIDE RECORDS SUMMARY | 2024-10-07 12:32 | XMS_ITS | Encounter Summary ---
Author Organization [facility] Address [address] [place] [address] Phone Care Team Providers Care Senior Payroll Administrator Name Role Phone Wilbert Jose MD Primary Care Provider [phone] Reason for Visit * Reason Comments Med Refill Encounter Details Date Type Department Care Team (Late st Contact Info) Description 12/15/[facility] [address] [phone] Wilbert Jose MD [address] [place] [address] Anxiety Social History Tobacco Use Types Packs/Day [...] unspecified documented in this encounter Care Teams Senior Payroll Administrator Relationship Specialty Start Date End Date Wilbert Jose MD [address] [facility] [place] [address] PCP - General Pediatrics 02/04/18 06/30/24 documented as of this encounter
--- OUTSIDE RECORDS SUMMARY | 2024-10-07 12:32 | XMS_ITS | Encounter Summary ---
Author Organization [facility] Address [address] [place] [address] Phone Care Team Providers Care Curtain Mender Name Role Phone Wilbert Jose MD Primary Care Provider [phone] Encounter Details Date Type Department Care Team (Late st Contact Info) Description 10/06/2017 Conversion Encounter [facility] [address] [place], [place] [address] [place] [address] Social History Tobacco Use Types Packs/Day Years [...] on filedocumented in this encounter Care Teams Curtain Mender Relationship Specialty Start Date End Date Wilbert Jose MD [address] [place] [address] PCP - General Pediatrics 02/04/18 06/30/24 documented as of this encounter
--- OUTSIDE RECORDS SUMMARY | 2024-10-07 12:32 | XMS_ITS | Clinical Summary ---
Author Organization [facility] Address [address] [place] [address] Phone Care Team Providers Care Board Design Engineer Name Role Phone Unavailable Primary Care Provider [...] Men B Vaccine Completed 05/18/2019, 01/07/2019 Insurance [facility] PPO
--- OUTSIDE RECORDS SUMMARY | 2024-10-07 12:32 | XMS_ITS | Encounter Summary ---
Author Organization [facility] Address [address] [place] [address] Phone Care Team Providers Care Emerging Solutions Executive Name Role Phone Wilbert Jose MD Primary Care Provider [phone] Reason for Visit * Reason Comments Med Refill Encounter Details Date Type Department Care Team (Late st Contact Info) Description 07/06/2019 [facility]ill [facility] [address] [place], [place] [phone] Claudia Reynolds NP [address] [place], [place] [phone] Anxiety Social History Tobacco Use Types Packs/Day [...] unspecified documented in this encounter Care Teams Emerging Solutions Executive Relationship Specialty Start Date End Date [facility] [address] P[facility] - General [facility] 02/04/18 06/30/24 documented as of this encounter
--- OUTSIDE RECORDS SUMMARY | 2024-10-07 12:32 | XMS_ITS | Encounter Summary ---
Author Organization [facility] Address [address] [place] [address] Phone Care Team Providers Care Patrol Captain Name Role Phone Wilbert Jose MD Primary Care Provider [phone] Reason for Visit * Reason Comments Med Refill Encounter Details Date Type Department Care Team (Late st Contact Info) Description 11/12/2019 [facility] [address] [phone] Wilbert Jose MD [address] [place] [address] Anxiety Social History Tobacco Use Types Packs/Day [...] unspecified documented in this encounter Care Teams Patrol Captain Relationship Specialty Start Date End Date Wilbert Jose MD [address] [place] [address] PCP - General Pediatrics 02/04/18 06/30/24 documented as of this encounter
--- OUTSIDE RECORDS SUMMARY | 2024-10-07 12:32 | XMS_ITS | Clinical Summary ---
Author Organization [facility] Address [address] [place] [address] Care Team Providers Care Sports Media Name Role Phone Unavailable Primary Care Provider [...]
[2024-10-07 14:16] LABS: Hematocrit 46.9 % (42.0-52.0); Hemoglobin 16.6 g/dl (14.0-18.0); Mean Corpuscular HGB Conc 35.4 g/dl (31.0-36.0); Mean Corpuscular Hemoglobin 31.6 pg (27.0-33.0); Mean Corpuscular Volume 89.3 fL (80.0-98.0); Mean Platelet Volume 10.8 fL (9.4-12.4); Platelet Count 255 X10*3/uL (160-400); Red Blood Count 5.25 X10*6/uL (4.60-5.80); Red Cell Distribution Width 12.3 % (11.0-16.0); White Blood Count 3.8 X10*3/uL (4.8-10.8)
[2024-10-07 14:33] LABS: Estimated Average Glucose 88 mg/dL; Hemoglobin A1C 114.4179 umol/L; Hemoglobin A1c % 4.7 % (<6.0); Total Hemoglobin (HGBA1C) 4174.7233 umol/L
[2024-10-07 15:25] LABS: Vitamin B12 533 pg/mL (200-900)
[2024-10-07 15:29] LABS: Alanine Aminotransferase 26 U/L (0-40); Albumin Level 4.9 g/dL (3.5-5.0); Alkaline Phosphatase 75 U/L (39-117); Anion Gap 9 (12-20); Aspartate Amino Transferase 24 U/L (5-37); Bilirubin Total 0.7 mg/dL (0.0-1.0); Blood Urea Nitrogen 9 mg/dL (9-16); Calcium 9.9 mg/dL (8.4-10.2); Carbon Dioxide 30 mmol/L (22-29); Chloride 104 mmol/L (96-108); Cholesterol 177 mg/dL (<200); Estimated Glomerular Filt Rate > 60; Glucose Random 91 mg/dL (60-115); HDL Cholesterol 60 mg/dL (>40); LDL Cholesterol Calculated 104 mg/dL (<100); Potassium 4.1 mmol/L (3.3-5.1); Sodium 139 mmol/L (135-145); Total Protein 7.8 g/dL (6.5-8.0); Triglycerides 69 mg/dL (<150)
[2024-10-07 15:31] LABS: TSH reflex Free T4 2.34 uIU/mL (0.32-4.0); Vitamin D 25-OH Total 36.6 ng/mL (>30)
== END 2024-10-07 11:14 | disposition home or self-care (01) ==
LOC: HO.WFDLDS 11:13
PROVIDERS: Visit Provider Nurse Practitioner Family
DX: Z00.00 Encounter for general adult medical examination without abnormal findings (principal); Z13.1 Encounter for screening for diabetes mellitus; Z13.6 Encounter for screening for cardiovascular disorders
CPT/HCPCS: 36415; 80053; 80061; 82306; 82607; 82746; 83036; 84443; 85027